=== PATIENT | male | born 1945 | race Caucasian/White ===

== ENCOUNTER 2016-12-04 06:17 | Day surgery (SDC) | payer MEDICARE, MEDICAID ==
[2016-12-04] MEDS ORDERED: Midazolam* 1 MG/ML 2 ML VIAL (2 MG) ONE (07:35)
[2016-12-04] MEDS ORDERED: Phenylephrine 2.5% OPTH.SOL* 2 ML BTL ONE (07:36)
[2016-12-04] MEDS ORDERED: Neomycin/Polymy/Dex OPTH.SUSP* MAXITROL 0.1% 5 ML ONE (07:36)
[2016-12-04] MEDS ORDERED: Lidocaine 1% MPF* 2 ML VIAL ONE (07:36)
[2016-12-04] MEDS ORDERED: Flurbiprofen 0.03% OPTH.SOL* 2.5 ML BTL ONE (07:36)
[2016-12-04] MEDS ORDERED: Povidone Iodine 5% OPTH* 30 ML BTL ONE (07:36)
[2016-12-04] MEDS ORDERED: Cyclopentolate 1% OPTH.SOL* 2 ML BTL ONE (07:36)
[2016-12-04] MEDS ORDERED: Proparacaine 0.5% OPHTH.SOL* 15 ML BTL ONE (07:36)
[2016-12-04] MEDS ORDERED: acetaZOLAMIDE TAB* 250 MG ONE (07:36)
[2016-12-04] MEDS ORDERED: Lidocaine 1% MPF wEPI 200,000* 30 ML SDV ONE (07:36)
[2016-12-04] MEDS ORDERED: Buffered Lidocaine 0.9% SYRIN* 5 ML/SYR SYRINGE ONE (07:37)
--- NOTE | 2016-12-04 09:14 | OP ---
DATE OF OPERATION: 12/04/16 [facility] DATE OF : 45 SURGEON: Klaus Alas M.D. PREOPERATIVE DIAGNOSIS: Cataract right eye. POSTOPERATIVE DIAGNOSIS: Cataract right eye. OPERATIVE PROCEDURE: Phacoemulsification, right eye, with intraocular lens implant. DESCRIPTION OF PROCEDURE: The patient was brought to the operating room after being given 1/2% Alcaine with epinephrine drops in the preoperative area. The eye was prepped and draped in the usual sterile fashion. Sterile drape and eyelid speculum were placed. Again, topical 1/2% Alcaine with epinephrine was given. A paracentesis incision was made at the 9 'clock position with the No.75 blade. Clear cornea incision 2.2 x 2.2-mm was created at the 12'clock position starting at the anterior limbus using the 2.2-mm keratome. The anterior chamber was irrigated with 0.4 mL of 1% non-preservative intracameral lidocaine and filled with DisCoVisc. A capsulorrhexis was completed using the cystotome and the Utrata forceps. Hydrodissection was performed with balanced salt solution. The lens nucleus was removed with the Phacoemulsification handpiece without incident. Cortex was removed with the irrigation-aspiration handpiece. The capsular bag was re-inflated using DisCoVisc and an [id number] 25 implant was inserted with the shooter. The pupil was only 3 mm, so a Malyugin ring was inserted prior to capsulorrhexis and removed after insertion of the lens. The irrigation- aspiration handpiece was used to remove all residual DisCoVisc. The eye was refilled with balanced salt solution and the wound checked and found to be watertight. Topical Maxitrol drops were given. [id number]/[facility] #: [id number] MTDD
[2016-12-09] MEDS ORDERED: Buffered Lidocaine 0.9% SYRIN* 5 ML/SYR SYRINGE INTRADERM ONE (12:09)
[2016-12-10] MEDS ORDERED: Acetaminophen TAB* 325 MG PO PRN (05:00)
== END 2016-12-04 08:21 | disposition home or self-care (01) ==
LOC: OREAST 06:17
PROVIDERS: ATTEND Specialist
DX: H25.11 Age-related nuclear cataract, right eye (principal); H43.813 Vitreous degeneration, bilateral; Z87.891 Personal history of nicotine dependence; J45.30 Mild persistent asthma, uncomplicated; H81.312 Aural vertigo, left ear
CPT/HCPCS: A9270-GY; J2001; J2250; V2632

== ENCOUNTER 2016-12-11 08:04 | Day surgery (SDC) | payer MEDICARE, MEDICAID ==
[2016-12-11] MEDS ORDERED: Lidocaine 1% MPF wEPI 200,000* 30 ML SDV ONE (08:08)
[2016-12-11] MEDS ORDERED: Neomycin/Polymy/Dex OPTH.SUSP* MAXITROL 0.1% 5 ML ONE (08:08)
[2016-12-11] MEDS ORDERED: Cyclopentolate 1% OPTH.SOL* 2 ML BTL ONE (08:08)
[2016-12-11] MEDS ORDERED: Lidocaine 1% MPF* 2 ML VIAL ONE (08:08)
[2016-12-11] MEDS ORDERED: Buffered Lidocaine 0.9% SYRIN* 5 ML/SYR SYRINGE ONE (08:08)
[2016-12-11] MEDS ORDERED: acetaZOLAMIDE TAB* 250 MG ONE (08:08)
[2016-12-11] MEDS ORDERED: Proparacaine 0.5% OPHTH.SOL* 15 ML BTL ONE (08:08)
[2016-12-11] MEDS ORDERED: Phenylephrine 2.5% OPTH.SOL* 2 ML BTL ONE (08:08)
[2016-12-11] MEDS ORDERED: Flurbiprofen 0.03% OPTH.SOL* 2.5 ML BTL ONE (08:08)
[2016-12-11] MEDS ORDERED: Povidone Iodine 5% OPTH* 30 ML BTL ONE (08:08)
[2016-12-11] MEDS ORDERED: Midazolam* 1 MG/ML 2 ML VIAL (2 MG) ONE (10:10)
[2016-12-11 11:00] VITALS: BP 117/64
--- NOTE | 2016-12-11 12:03 | OP ---
DATE OF OPERATION: 12/11/2016 - [facility] DATE OF : 1945. SURGEON: Klaus Alas M.D. PREOPERATIVE DIAGNOSIS: Cataract left eye. POSTOPERATIVE DIAGNOSIS: Cataract left eye. OPERATIVE PROCEDURE: Phacoemulsification left eye with IOL. DESCRIPTION OF PROCEDURE: The patient was brought to the operating room after being given 1/2% Alcaine with epinephrine drops in the preoperative area. The eye was prepped and draped in the usual sterile fashion. Sterile drape and eyelid speculum were placed. Again, topical 1/2% Alcaine with epinephrine was given. A paracentesis incision was made at the 3 o'clock position with the No.75 blade. Clear cornea incision 2.2 x 2.2-mm was created at the 6 o'clock position starting at the anterior limbus using the 2.2-mm keratome. The anterior chamber was irrigated with 0.4 mL of 1% non-preservative intracameral lidocaine and filled with DisCoVisc. A capsulorrhexis was completed using the cystotome and the Utrata forceps. Hydrodissection was performed with balanced salt solution. The lens nucleus was removed with the Phacoemulsification handpiece without incident. Cortex was removed with the irrigation-aspiration handpiece. The capsular bag was re-inflated using DisCoVisc and an SN60WF 24.5 implant was inserted with the shooter. A Malyugin ring was used to dilate the pupil prior to capsulorrhexis, it was only a 3 mm pupil, and removed after insertion of the lens. The irrigation-aspiration handpiece was used to remove all residual DisCoVisc. The eye was refilled with balanced salt solution and the wound checked and found to be watertight. Topical Maxitrol drops were given. Indication for complex cataract surgery: Pupil abnormalities requiring pupil dilation device. [id number]/[facility] #: [id number] JAMILA
== END 2016-12-11 10:52 | disposition home or self-care (01) ==
LOC: OREAST 08:04
PROVIDERS: ATTEND Specialist
DX: H25.12 Age-related nuclear cataract, left eye (principal); H21.562 Pupillary abnormality, left eye
CPT/HCPCS: A9270-GY; J2001; J2250; V2632

== ENCOUNTER 2018-12-03 13:02 | Emergency (ER) | payer MEDICARE, MEDICAID ==
[2018-12-03 13:19] VITALS: BP 148/82
--- NOTE | 2018-12-03 13:23 | UC ---
Knee Pain HPI - HPI Summary HPI Summary: 73 yo male presents with RIGHT knee pain. He tells me that yesterday he was walking down his steps at home and felt a pop in his right medial knee. Since that time has had pain and swelling. He did not fall or twist his knee. No instability. He has never injured this knee in the past or had any surgeries to the area. Has not taken anything OTC for discomfort. Pain worse with ambulation and weight bearing. Pain better with rest. Denies numbness or tingling. - History of Current Complaint Chief Complaint: UCLowerExtremity Stated Complaint: KNEE PAIN Time Seen by Provider: 12/03/18 13:23 Hx Obtained From: Patient Onset/Duration: Sudden Onset Severity Initially: Severe Severity Currently: Severe Pain Intensity: 10 Pain Scale Used: 0-10 Numeric - Allergies/Home Medications Allergies/Adverse Reactions: Allergies Allergy/AdvReac Type Severity Reaction Status Date / Time No Known Allergies Allergy Verified 12/03/18 13:19 PMH/Surg Hx/FS Hx/Imm Hx Respiratory History: COPD Other History Of: Negative For: HIV, Hepatitis B, Hepatitis C - Surgical History Surgical History: Yes Surgery Procedure, Year, and Place: teeth removed - Family History Known Family History: Positive: None - Social History Occupation: Retired Lives: With Family Alcohol Use: None Substance Use Type: None Smoking Status (MU): Former Smoker Amount Used/How Often: smoked cigarettes for 4 years , then went to chewing tobacco Review of Systems All Other Systems Reviewed And Are Negative: Yes Constitutional: Positive: Negative Skin: Positive: Negative Respiratory: Positive: Negative Cardiovascular: Positive: Negative Neurovascular: Positive: Negative Musculoskeletal: Positive: Other: - RIGHT KNEE PAIN Neurological: Positive: Negative Psychological: Positive: Negative Physical Exam - Summary Physical Exam Summary: GENERAL: NAD. WDWN. No pain distress. SKIN: No rashes, sores, lesions, or open wounds. CHEST: No accessory muscle use. Breathing comfortably and in no distress. CV: Pulses intact popliteal, PT, and DP. Cap refill <2seconds MSK: RIGHT KNEE: FROM. Moderate edema at medial superior aspect with mild TTP here. Strength 5/5. No patella apprehension. Negative Chriss, A/P drawer, Sanjay, and varus/valgus stress. NEURO: Alert. Sensations intact and symmetric B/L LEs PSYCH: Age appropriate behavior. Triage Information Reviewed: Yes Vital Signs: Initial Vital Signs Temp 98.6 F 12/03/18 13:16 Pulse 86 12/03/18 13:16 Resp 18 12/03/18 13:16 BP 148/82 12/03/18 13:16 Pulse Ox 100 12/03/18 13:16 Vital Signs Reviewed: Yes Knee Pain Course/Dx - Course Course Of Treatment: XR knee: REPORT AND IMPRESSION: #. Probable small joint effusion. #. Negative for fracture or malalignment. #. Negative for joint space narrowing. #. Mild anterior soft tissue swelling. Suspect flare of arthritis vs ligament disruption/sprain - advised to try an OTC knee brace and to rest, ice, and elevate his knee. May take tylenol as directed for discomfort. He preferred to try a knee immobilizer today and felt comfortable after trying this - therefore will have him use this or an OTC knee brace if he chooses. - Differential Dx/Diagnosis Provider Diagnosis: Knee pain Discharge - Sign-Out/Discharge Documenting (check all that apply): Patient Departure All imaging exams completed and their final reports reviewed: Yes - Discharge Plan Condition: Stable Disposition: HOME Patient Education Materials: Knee Sprain (ED) Referrals: Timmy Guerin DO [Primary Care Provider] - Lovely Andre MD [Medical Doctor] - As Soon As Possible Additional Instructions: If you develop a fever, shortness of breath, chest pain, new or worsening symptoms - please call your PCP or go to the ED immediately. Your blood pressure was high at todays visit. Please see your primary provider within 4 weeks for recheck and re-evaluation. 1) Rest, Ice, and elevate your knee intermittently throughout the day. May take tylenol as directed for discomfort 2) Use the knee immobilizer or an [id number] knee brace to add support to your knee and to reduce pain and swelling 3) I recommend that you call Orthopedics at the number below to schedule an appointment within 1 week for a recheck - Billing Disposition and Condition Condition: STABLE Disposition: Home
== END 2018-12-03 14:42 | disposition home or self-care (01) ==
LOC: UCEAST 13:02
DX: M25.561 Pain in right knee (principal); Z87.891 Personal history of nicotine dependence
CPT/HCPCS: 99212; G0463